=== PATIENT | male | born 1945 | race Caucasian/White ===

== ENCOUNTER 2020-02-03 13:55 | Emergency (ER) | payer MEDICARE ==
[~2020-02-03] VITALS: Ht 180.3 cm; Wt 94.5 kg
--- NOTE | 2020-02-03 14:03 | NUR ---
KEVIN VAZQUEZ CELL [phone]
[2020-02-03] MEDS ORDERED: aspirin 81mg tab.chew PO ONE (14:05)
[2020-02-03 14:49] LABS: BASOPHILS # (AUTO) 0.1 X10'3 (0-0.2); BASOPHILS % (AUTO) 0.5 % (0-1); EOSINOPHILS # (AUTO) 0.1 X10'3 (0-0.9); HEMATOCRIT 43.9 % (42.0-52.0); HEMOGLOBIN 14.8 g/dl (14.0-17.9); LYMPHOCYTES # (AUTO) 1.8 X10'3 (1.1-4.8); LYMPHOCYTES % (AUTO) 17.9 % (21-51); MEAN CORPUSCULAR HGB CONC 33.6 g/dL (33.0-36.5); MEAN CORPUSCULAR VOLUME 95.2 FL (78-98); MEAN PLATELET VOLUME 7.7 FL (7.4-10.4); MONOCYTES # (AUTO) 0.8 X10'3 (0-0.9); MONOCYTES % (AUTO) 8.1 % (2-12); NEUTROPHILS # (AUTO) 7.1 X10'3 (1.8-7.7); NEUTROPHILS % (AUTO) 72.5 % (42-75); PLATELET COUNT 320 X10'3 (140-440); RED BLOOD COUNT 4.61 X10'6 (4.70-6.10); RED CELL DISTRIBUTION WIDTH 13.4 % (11.5-14.5); WHITE BLOOD COUNT 9.8 X10'3 (4.5-11.0)
[2020-02-03] MEDS ORDERED: normal saline 1000ML IV soln IVB ONE (14:50)
[2020-02-03 15:19] LABS: ALANINE AMINOTRANSFERASE 28 U/L (12-78); ALBUMIN 3.3 G/DL (3.4-5.0); ALBUMIN/GLOBULIN RATIO 1.1 (1.1-1.5); ALKALINE PHOSPHATASE 88 IU/L (46-116); ANION GAP 4 (8-16); ASPARTATE AMINO TRANSFERASE 15 U/L (10-37); BILIRUBIN,TOTAL 0.5 MG/DL (0.1-1.0); BLOOD UREA NITROGEN 16 MG/DL (7-18); BUN/CREATININE RATIO 15.4 (5.4-32.0); CALCIUM 9.1 MG/DL (8.5-10.1); CHLORIDE 108 MMOL/L (99-107); CREATININE 1.04 MG/DL (0.60-1.10); GLUCOSE 98 MG/DL (70-104); POTASSIUM 3.9 MMOL/L (3.5-5.1); SODIUM 143 MMOL/L (135-145); TOTAL CARBON DIOXIDE 30.6 MMOL/L (24-32); TOTAL PROTEIN 6.4 G/DL (6.4-8.2); eGFR 70 ML/MIN
[2020-02-03 15:27] LABS: MAGNESIUM 2.2 MG/DL (1.5-2.4)
[2020-02-03 16:27] VITALS: BP 123/73
== END 2020-02-03 16:28 | disposition home or self-care (01) ==
LOC: ER 13:56
DX: I95.1 Orthostatic hypotension (principal); I10 Essential (primary) hypertension
CPT/HCPCS: 36415; 71045; 80053; 83735; 83880; 84484; 85025; 93005; 96360; 99285; J7030; 82948